=== PATIENT | male | born 1980 | race Two or more races ===

== ENCOUNTER 2023-12-03 15:04 | Emergency (ER) | payer SELFPAY ==
[~2023-12-03] VITALS: Ht 172.7 cm; Wt 112.3 kg
[2023-12-03 15:59] LABS: Basophils # (auto) 0.1 10 ^3/uL (0-0.2); Basophils % (auto) 0.6 % (0.0-2.0); Eosinophils # (auto) 0.3 10 ^3/uL (0-0.8); Hematocrit 48.5 % (41.0-53.0); Hemoglobin 16.7 g/dL (13.5-17.5); Lymphocytes # (auto) 1.8 10 ^3/uL (0.4-5.4); Lymphocytes % (auto) 20.8 % (10.0-50.0); Mean Corpuscular Hemoglobin 30.7 pg (28.0-32.0); Mean Corpuscular Hgb Conc. 34.5 g/dL (32.0-36.0); Mean Corpuscular Volume 88.8 fL (80.0-100.0); Monocytes # (auto) 0.9 10 ^3/uL (0-1.3); Monocytes % (auto) 9.7 % (0.0-12.0); Neutrophils # (auto) 5.8 10 ^3/uL (1.6-8.6); Neutrophils % (auto) 65.9 % (37.0-80.0); Nucleated Red Blood Cells % 0.1 %; Platelet Count (auto) 406 10^3/uL (140-450); Red Blood Cells 5.46 10^6/uL (4.5-5.90); Red Cell Distribution Width 13.7 % (11.8-14.3); White Blood Cell 8.9 10^3/uL (4.4-10.8)
[2023-12-03 16:02] LABS: Chloride 105 mmol/L (98-107); Potassium 3.8 mmol/L (3.5-5.1); Sodium 140 mmol/L (136-145)
[2023-12-03 16:03] LABS: Anion Gap 7 (5-15); Carbon Dioxide 28 mmol/L (20-31)
[2023-12-03 16:08] LABS: BUN/Creatinine Ratio 11.4 (10.0-20.0); Blood Urea Nitrogen 10 mg/dL (9-23); Glucose 98 mg/dL (74-106)
[2023-12-03] MEDS ORDERED: LISI20TA56 PO (16:18)
[2023-12-03] MEDS ORDERED: BACDST PO (16:20)
[2023-12-03] MEDS: cloNIDine HCL 0.1 MG TAB PO ONE (16:31)
[2023-12-03 17:40] VITALS: BP 155/103; PULSE 92; RESP 16; O2SAT 95
== END 2023-12-03 17:56 | disposition home or self-care (01) ==
LOC: ER 15:04
DX: I16.0 Hypertensive urgency (principal); L03.115 Cellulitis of right lower limb; Z79.899 Other long term (current) drug therapy; Z98.890 Other specified postprocedural states
CPT/HCPCS: 36415; 80048; 85025